=== PATIENT | female | born 1940 | race African-American/Black ===

== ENCOUNTER 2018-03-29 21:18 | Observation (INO) | payer OTHER, MEDICAID ==
[~2018-03-29] VITALS: Ht 162.6 cm; Wt 136.1 kg
[2018-03-29 22:08] LABS: Basophils # (auto) 0 uL; Eosinophils # (auto) 0 uL; Mean Corpuscular Hgb Conc. 30.3 g/dL (32.0-36.0); Nucleated Red Blood Cells % 0.1 %
[2018-03-29 22:10] LABS: Basophils % (auto) 0.4 % (0.0-2.0); Eosinophils % (auto) 0.2 % (0.0-7.0); Lymphocytes # (auto) 1.1 uL; Lymphocytes % (auto) 15.9 % (10.0-50.0); Mean Corpuscular Hemoglobin 25.4 pg (28.0-32.0); Mean Corpuscular Volume 83.6 fL (80.0-100.0); Monocytes # (auto) 0.6 uL; Monocytes % (auto) 7.8 % (0.0-12.0); Neutrophils # (auto) 5.5 uL; Neutrophils % (auto) 75.7 % (37.0-80.0); Platelet Count (auto) 297 10^3/uL (140-450); Red Blood Cells 3.95 10^6/uL (4.0-5.20); White Blood Cell 7.2 10^3/uL (4.4-10.8)
[2018-03-29 22:43] LABS: Albumin 3.3 g/dL (3.4-5.0); BUN/Creatinine Ratio 13.6; Bilirubin, Total 0.6 mg/dL (0.2-1.0); Calcium 8.8 mg/dL (8.5-10.1); Magnesium 2.9 mg/dL (1.6-2.6); Total Protein 7.3 g/dL (6.4-8.2)
[2018-03-29] MEDS ORDERED: FUROSEMIDE 20 MG/2 ML VIAL IV ONE (23:45)
[2018-03-30 01:38] LABS: Urine Bacteria FEW /hpf (None Seen); Urine Blood TRACE /uL (Negative); Urine Mucus FEW (None Seen); Urine Specific Gravity 1.007 (1.001-1.035); Urine WBC 1 /hpf (0 - 5)
[2018-03-30 05:41] VITALS: BP 151/69
[2018-03-30] MEDS ORDERED: ENOXAPARIN SOD 150 MG/1 ML SYRINGE SC ONE (06:00)
== END 2018-03-30 06:22 | disposition short-term general hospital (02) | DRG 293 ==
LOC: EDBD 21:18 → ER 21:23 → OVERFLOW 21:24 → ER 03-30 06:22
PROVIDERS: ADMIT Emergency Medicine; ATTEND Emergency Medicine
DX: I11.0 Hypertensive heart disease with heart failure (principal); I50.9 Heart failure, unspecified; E11.9 Type 2 diabetes mellitus without complications; R74.8 Abnormal levels of other serum enzymes; Z90.49 Acquired absence of other specified parts of digestive tract; Z82.49 Family history of ischemic heart disease and other diseases of the circulatory system; Z86.73 Personal history of transient ischemic attack (TIA), and cerebral infarction without residual deficits; E03.9 Hypothyroidism, unspecified
CPT/HCPCS: 36415; 70450; 71045; 80053; 81001; 83735; 83880; 84443; 84484; 85025; 93005; 96374; 99285; G0378; J1940